=== PATIENT | male | born 1985 | race Caucasian/White ===

== ENCOUNTER 2017-12-11 20:11 | Emergency (ER) | payer BC, OTHER ==
--- NOTE | 2017-12-11 21:11 | PDOC ---
Rapid Medical Evaluation Time Seen by Provider: 12/11/17 21:08 Medical Evaluation: 12/11/17 21:08 I have performed a brief in-person evaluation of this patient. The patient presents with a chief complaint of: n/v, chills, general malaise since yesterday. NO CP NOW. states was having pleuritic cp/mid sterum. worse on deep inspiration HR 115 IN TRIAGE Pertinent physical exam findings:L/S CTAB RRR, S1,S2 I have ordered the following: ekg, cbc/cmp/influenza swab The patient will proceed to the ED for further evaluation
[2017-12-11 21:16] VITALS: BP 123/87; PULSE 117; TEMP 99.5; BMI 28.1
[2017-12-11 21:33] LABS: BASO % 0.3 % (0-2.0); HEMATOCRIT 45.9 % (35.4-49); HEMOGLOBIN 15.6 GM/dL (11.7-16.9); LYMPH % 12.6 % (8-40); MCH 30.1 pg (25.7-33.7); MCHC 33.9 g/dl (32.0-35.9); MEAN CELL VOLUME 88.6 fl (80-96); MEAN PLT VOLUME 8.9 fl (7.5-11.1); MONO % 6.3 % (3.8-10.2); NEUT % 80.8 % (42.8-82.8); PLATELET COUNT 178 K/MM3 (134-434); RBC 5.18 M/mm3 (4.00-5.60); RDW 12.3 % (11.9-15.9); WHITE BLOOD COUNT 8.6 K/mm3 (4.0-10.0)
[2017-12-11 21:34] LABS: URINE APPEARANCE CLEAR; URINE BILIRUBIN NEGATIVE (NEGATIVE); URINE BLOOD 1+ (NEGATIVE); URINE COLOR YELLOW; URINE GLUCOSE (UA) NEGATIVE (NEGATIVE); URINE KETONE NEGATIVE (NEGATIVE); URINE LEUK ESTERASE NEGATIVE (NEGATIVE); URINE NITRITE NEGATIVE (NEGATIVE); URINE PROTEIN NEGATIVE (NEGATIVE)
[2017-12-11 22:21] LABS: ALBUMIN 4.3 g/dl (3.4-5.0); ANION GAP 11 (8-16); BILIRUBIN,TOTAL 0.8 mg/dL (0.2-1.0); BLOOD UREA NITROGEN 13 mg/dL (7-18); CALCIUM 8.1 mg/dL (8.5-10.1); CHLORIDE 103 mmol/L (98-107); CO2 24 mmol/L (21-32); GLUCOSE,RANDOM 106 mg/dL (74-106); POTASSIUM 3.7 mmol/L (3.5-5.1); SGOT/AST 14 U/L (15-37); SGPT/ALT 27 U/L (12-78); SODIUM 138 mmol/L (136-145); TOT PROT 7.5 g/dl (6.4-8.2)
[2017-12-11 22:24] LABS: ALK PHOS 31 U/L (45-117)
[2017-12-11 22:32] LABS: URINE MUCUS MANY
[2017-12-11] MEDS ORDERED: SODIUM CHLORIDE 0.9% 500 ML INFUS.BAG IV ONE (23:56)
[2017-12-11] MEDS ORDERED: ONDANSETRON 4 MG/2 ML VIAL IVPB ONE (23:56)
--- NOTE | 2017-12-12 00:02 | PDOC ---
History of Present Illness - History of Present Illness Initial Comments: 12/12/17 00:51 Patient is a 32M with no significant PMHx, who presents with malaise, nausea, vomit, diarrhea, and chest pain since last night. Patient report symptoms began last night around 11pm. He reports non-bloody, non-bilious vomit. He reports an associated frontal headache which has since subsided upon arrival as well as lower back pain. Denies sick contacts, recent travel, SOB, palpitations. Denies pain w/ urination , no hematuria, Denies flank pain. <Adele Bach - Last Filed: 12/12/17 01:24> <Valentina Stahl - Last Filed: 12/12/17 02:49> - General Chief Complaint: Nausea/Vomiting Stated Complaint: FATIGUE/CHEST PAIN Time Seen by Provider: 12/11/17 21:08 Past History <Adele Bach - Last Filed: 12/12/17 01:24> - Past Medical History COPD: No - Suicide/Smoking/Psychosocial Hx Smoking History: Never smoked Have you smoked in the past 12 months: No Information on smoking cessation initiated: No Hx Alcohol Use: No Drug/Substance Use Hx: No Substance Use Type: None <Valentina Stahl - Last Filed: 12/12/17 02:49> - Past Medical History Allergies/Adverse Reactions: Allergies Allergy/AdvReac Type Severity Reaction Status Date / Time No Known Allergies Allergy Verified 12/11/17 21:16 *Physical Exam - Vital Signs Last Vital Signs Temp Pulse Resp BP Pulse Ox 99.5 F 117 H 18 123/87 96 12/11/17 21:10 12/11/17 21:10 12/11/17 21:10 12/11/17 21:10 12/11/17 21:10 - Physical Exam Comments: 12/12/17 01:24 GENERAL: Awake, alert, and fully oriented. Dehydrated. HEAD: No signs of trauma EYES: PERRLA, EOMI, sclera anicteric, conjunctiva clear ENT: Auricles normal inspection, hearing grossly normal, nares patent, oropharynx clear without exudates. Moist mucosa NECK: Normal ROM, supple, no lymphadenopathy, JVD, or masses LUNGS: Breath sounds equal, clear to auscultation bilaterally. No wheezes, and no crackles HEART: Regular rate and rhythm, normal S1 and S2, no murmurs, rubs or gallops ABDOMEN: Soft, nontender, normoactive bowel sounds. No guarding, no rebound. No masses. No flank pain. EXTREMITIES: Normal range of motion, no edema. No clubbing or cyanosis. No cords, erythema, or tenderness NEUROLOGICAL: Positional dizziness when sitting up. Cranial nerves II through XII grossly intact. Normal speech, normal gait SKIN: Warm, Dry, normal turgor,pale, diaphoretic. no rashes or lesions noted. <Adele Bach - Last Filed: 12/12/17 01:24> - Vital Signs Last Vital Signs Temp Pulse Resp BP Pulse Ox 99.5 F 117 H 18 123/87 96 12/11/17 21:10 12/11/17 21:10 12/11/17 21:10 12/11/17 21:10 12/11/17 21:10 <Valentina Stahl - Last Filed: 12/12/17 02:49> ED Treatment Course - LABORATORY CBC & Chemistry Diagram: 12/11/17 21:25 12/11/17 21:25 - ADDITIONAL ORDERS Additional order review: Laboratory Results 12/11/17 12/11/17 21:25 21:25 Sodium 138 Potassium 3.7 Chloride 103 Carbon Dioxide 24 Anion Gap 11 BUN 13 Creatinine 1.0 Creat Clearance w eGFR > 60 Random Glucose 106 Calcium 8.1 L Total Bilirubin 0.8 AST 14 L ALT 27 Alkaline Phosphatase 31 L Creatine Kinase 111 Troponin I < 0.02 Total Protein 7.5 Albumin 4.3 Urine Color Yellow Urine Appearance Clear Urine pH 5.0 Ur Specific [employer] 1.030 Urine Protein Negative Urine Glucose (UA) Negative Urine Ketones Negative Urine Blood 1+ H Urine Nitrite Negative Urine Bilirubin Negative Urine Urobilinogen 2.0 Ur Leukocyte Esterase Negative Urine WBC (Auto) <1 Urine RBC (Auto) 20 Urine Mucus Many 12/11/17 21:25 Influenza Types A,B Antigen (MAX) - Final Nasopharyngeal Swab - Final 12/11/17 21:25 RBC 5.18 MCV 88.6 MCHC 33.9 RDW 12.3 MPV 8.9 Neutrophils % 80.8 Lymphocytes % 12.6 Monocytes % 6.3 Eosinophils % 0.0 Basophils % 0.3 <Adele Bach - Last Filed: 12/12/17 01:24> - LABORATORY CBC & Chemistry Diagram: 12/11/17 21:25 12/11/17 21:25 - ADDITIONAL ORDERS Additional order review: Laboratory Results 12/11/17 12/11/17 21:25 21:25 Sodium 138 Potassium 3.7 Chloride 103 Carbon Dioxide 24 Anion Gap 11 BUN 13 Creatinine 1.0 Creat Clearance w eGFR > 60 Random Glucose 106 Calcium 8.1 L Total Bilirubin 0.8 AST 14 L ALT 27 Alkaline Phosphatase 31 L Creatine Kinase 111 Troponin I < 0.02 Total Protein 7.5 Albumin 4.3 Urine Color Yellow Urine Appearance Clear Urine pH 5.0 Ur Specific [employer] 1.030 Urine Protein Negative Urine Glucose (UA) Negative Urine Ketones Negative Urine Blood 1+ H Urine Nitrite Negative Urine Bilirubin Negative Urine Urobilinogen 2.0 Ur Leukocyte Esterase Negative Urine WBC (Auto) <1 Urine RBC (Auto) 20 Urine Mucus Many 12/11/17 21:25 Influenza Types A,B Antigen (MAX) - Final Nasopharyngeal Swab - Final 12/11/17 21:25 RBC 5.18 MCV 88.6 MCHC 33.9 RDW 12.3 MPV 8.9 Neutrophils % 80.8 Lymphocytes % 12.6 Monocytes % 6.3 Eosinophils % 0.0 Basophils % 0.3 <Valentina Stahl - Last Filed: 12/12/17 02:49> *DC/Admit/Observation/Transfer - Attestations Scribe Attestion: 12/12/17 01:27 Documentation prepared by Adele Bach, acting as nuclear medical technologist for Valentina Stahl MD. <Adele Bach - Last Filed: 12/12/17 01:24> - Discharge Dispostion Admit: No <Valentina Stahl - Last Filed: 12/12/17 02:49> Diagnosis at time of Disposition: Viral gastroenteritis - Discharge Dispostion Disposition: HOME Condition at time of disposition: Improved - Referrals Referrals: STAFF,NOT ON [Primary Care Provider] - - Patient Instructions Printed Discharge Instructions: Viral Gastroenteritis - Post Discharge Activity Forms/Work/School Notes: Back to Work
[2017-12-12] MEDS ORDERED: ONDANSETRON 4 MG/2 ML VIAL ONE (00:57)
[2017-12-12] MEDS ORDERED: ACETAMINOPHEN 1000 MG/100 ML VIAL (NON FORMULARY) IVPB ONE (01:23)
[2017-12-12] MEDS ORDERED: ACETAMINOPHEN INJECTION 100 ML IVPB ONE (01:51)
--- NOTE | 2017-12-14 21:47 | EKG ---
Test Reason : Blood Pressure : / mmHG Vent. Rate : 097 BPM Atrial Rate : 097 BPM P-R Int : 180 ms QRS Dur : 102 ms QT Int : 340 ms P-R-T Axes : 029 004 024 degrees QTc Int : 431 ms NORMAL SINUS RHYTHM NORMAL ECG NO PREVIOUS ECGS AVAILABLE Confirmed by SABINA MCLEOD MD ([id number]) on 12/14/2017 9:46:39 PM Referred By: Confirmed By:SABINA MCLEDO MD
== END 2017-12-12 02:47 | disposition home or self-care (01) ==
LOC: JER 20:11
PROC: 3E033NZ Introduction of Analgesics, Hypnotics, Sedatives into Peripheral Vein, Percutaneous Approach (ICD-10-PCS; principal; 2017-12-11)
PROC: 3E033GC Introduction of Other Therapeutic Substance into Peripheral Vein, Percutaneous Approach (ICD-10-PCS; 2017-12-11)
DX: A08.4 Viral intestinal infection, unspecified (principal); B97.89 Other viral agents as the cause of diseases classified elsewhere
CPT/HCPCS: 36415; 71046-TC; 80053; 81003; 81015; 82550; 84484; 85025; 87804; 93005; 93010; 99283-25